=== PATIENT | female | born 1970 | race Caucasian/White ===

== ENCOUNTER → 2025-08-31 06:35 | Outpatient (REF) | payer OTHER, SELFPAY | LOC: HWWDC 06:35 | PROVIDERS: ATTENDING PHYSICIAN Family Medicine | DX: Z12.31 Encounter for screening mammogram for malignant neoplasm of breast (principal) | CPT/HCPCS: 77063; 77067 ==

== ENCOUNTER → 2025-09-13 08:59 | Outpatient (REF) | payer OTHER, SELFPAY | LOC: WDC 08:59 | PROVIDERS: ATTENDING PHYSICIAN Family Medicine | DX: R92.8 Other abnormal and inconclusive findings on diagnostic imaging of breast (principal) | CPT/HCPCS: 76642 ==

== ENCOUNTER → 2025-09-27 09:04 | Outpatient (REF) | payer OTHER, SELFPAY | LOC: RST 09:04 | PROVIDERS: ATTENDING PHYSICIAN Family Medicine | DX: R13.10 Dysphagia, unspecified (principal) | CPT/HCPCS: 74230; 92611 ==